=== PATIENT | male | born 1955 | race Caucasian/White ===

== ENCOUNTER 2024-04-26 09:28 | Emergency (ER) | payer MEDICARE, OTHER, SELFPAY ==
[2024-04-26 09:29] VITALS: BMI 47.2
[2024-04-26 09:36] VITALS: BP 161/68
--- NOTE | 2024-04-26 10:33 | ED.GENMED ---
History of Present Illness
General
Chief Complaint: Back Pain
Source: patient
Exam Limitations: none
Time Seen by Provider: 04/26/24 10:17
History of Present Illness
History of Present Illness:
69-year-old male diabetic presents with 3 weeks worth of intermittent left lower back pain. There is no associated leg pain. No bowel or bladder dysfunction. No paresthesias. He has been going to the chiropractor without relief. He tried
meloxicam which helps a little bit but the pain returns. Today the pain was so bad he was having trouble walking. No known injury. No other complaints at this time.
Phy Exam
Physical Exam
Physical Exam:
General: Well-appearing male no acute respiratory distress
HEENT: Normocephalic atraumatic
Heart: Regular rate and rhythm no murmurs
Lungs: Clear no wheeze
Abdomen is soft nontender nondistended musculoskeletal exam: Patient is tender over the left flank
And lumbosacral junction on the left side. Good passive range of motion of both legs
Skin is warm no rash
Course
Orders/Labs/Results
Orders:
Orders
04/26/24 10:28
Ketorolac [Toradol] 15 mg IV NOW STA
diazePAM [Valium Injection] 5 mg IV NOW STA
04/26/24 10:29
CT Abd/pel Without Iv Or Oral Urgent
Comment:
Reason For Exam: left flank pain
04/26/24 10:59
Complete Blood Count/With Diff Urgent
Comprehensive Metabolic Panel Urgent
04/26/24 11:00
Urinalysis Reflex To Culture Urgent
Date Specimen was Collected: 04/26/24
Time Specimen was Collected: 10:56
Urine Microscopic Reflex Cult Urgent
Abnormal Lab Results
04/26/24 04/26/24
10:59 11:00
Lymphocytes % 19.1 L %
(20.5-51.1)
BUN 24 H mg/dl
(9-20)
Glucose 109 H mg/dl
(70-99)
Urine Bacteria (Reflex) Few A
(Negative)
Urine Albumin (Reflex) 2+ A
(Neg - Trace)
04/26/24 10:59
04/26/24 10:59
Vital Signs
Initial and Last Documented VS:
Initial Vital Signs
Temp Pulse Resp BP Pulse Ox
98.2 F 80 18 161/68 99
04/26/24 09:36 04/26/24 09:36 04/26/24 09:36 04/26/24 09:36 04/26/24 09:36
Last Documented Vital Signs
Temp Pulse Resp BP Pulse Ox
98.2 F 80 18 158/76 98
04/26/24 09:36 04/26/24 09:36 04/26/24 09:36 04/26/24 14:00 04/26/24 14:15
MDM/Problems Addressed
Differential Diagnosis Includes:
Left flank and lower back pain. Consider musculoskeletal flank pain versus radiculopathy versus renal colic versus diverticulitis
No red flags to suggest cauda equina. No fevers to suggest infectious process
CT of abdomen pelvis without contrast is ordered. Will check urine labs treat symptoms with Toradol and Valium
*Critical Care Note
Total Time (30-74mins, 75-104mins- exclusive of procedures): Not Applicable
Update Note
Update Note:
Ct negative for acute findings. Patient feeling better after intervention here. Suspect muscular strain of lumbar spine. He is ambulatory to the bathroom at this time. Will send home prescription for prednisone and muscle relaxer.
ED Attending Note
-
Portions of this chart may have been created with voice recognition software.� Occasional wrong word or��sound alike� substitutions may have occurred due to the inherent limitations of voice recognition software.
Discharge Plan
Departure
Patient Disposition: Home (Routine Discharge)
Date of Disposition: 04/26/24
Time of Disposition: 15:09
Patient with high blood pressure during this ER visit?: No
Discharge Problem:
Lumbosacral strain
Instructions: Low Back Pain (DC)
Prescriptions:
New
diazepam [Valium] 5 mg tablet
5 mg PO BID PRN (Reason: muscle spasm) Qty: 10 0RF
prednisone 10 mg Tablet
See Rx Instructions .ROUTE .COMPLEX Qty: 30 0RF
Rx Instructions:
Take By Mouth:
40 mg daily x3 days, 30 mg daily x3 days,
20 mg daily x3 days, 10 mg daily x3 days.
Referrals:
Joao Tucker MD [Family Provider] -
Activity Restrictions/Additional Instructions:
Take medication as directed. Use warm compresses to the back. Return if worse otherwise follow-up with your doctor
Interventions
Interventions:
*Risk Screen - Suicide Last Done: 04/26/24 09:30
*General Assessment Last Done: 04/26/24 09:30
*Neglect/Abuse Screening Last Done: 04/26/24 09:30
*ED- Fall Risk Assessment Last Done: 04/26/24 09:30
*ED COVID-19 Vaccine History Last Done: 04/26/24 09:30
ED-Musculoskeletal Assessment Last Done: 04/26/24 11:08
Discharge Date and Time
Print Language: FRENCH
[2024-04-26] MEDS: TORADOL 15 MG IV (11:00)
[2024-04-26] MEDS: VALIUM INJECTION 5 MG IV (11:00)
[2024-04-26 11:07] VITALS: BP 146/90
[2024-04-26 11:30] LABS: % Basophils 0.8 % (0-2); % Eosinophils 1.5 % (0-6); % Immature Granulocytes 0.4 % (0-0.5); % Lymphocytes 19.1 % (20.5-51.1); % Monocytes 7.2 % (1.7-9.3); Absolute Basophils 0.1 10^3/uL (0-0.2); Absolute Eosinophils 0.1 10^3/uL (0-0.7); Absolute Lymphocytes 1.4 10^3/uL (1.2-3.4); Absolute Monocytes 0.5 10^3/uL (0.1-0.6); Absolute Neutrophils 5.4 10^3/uL (1.4-6.5); Hematocrit 40.2 % (39.0-52.0); Hemoglobin 13.3 g/dL (13.0-18.0); Mean Corp Hgb Conc. 33.1 g/dL (33.0-37.0); Mean Corpuscular Volume 84.6 fL (80.0-94.0); Mean Platelet Volume 9.4 fL (7.4-10.4); Nucleated Red Blood Cells % 0 % (-); Platelet Count 194 10^3/uL (130-400); Red Blood Cell Count 4.75 10^6/uL (4.70-6.10); White Blood Cell Count 7.6 10^3/uL (4.8-10.8)
[2024-04-26 11:36] LABS: ALT (SGPT) 30 U/L (0-50); AST (SGOT) 23 U/L (17-59); Alkaline Phosphatase 96 U/L (38-126); Blood Urea Nitrogen 24 mg/dl (9-20); Calcium 9.3 mg/dl (8.4-10.2); Carbon Dioxide 29 mmol/L (22-30); Chloride 105 mmol/L (98-107); Estimated Creatinine Clearance 75 ml/min; Glucose 109 mg/dl (70-99); Potassium 3.9 mmol/L (3.5-5.1); Sodium 143 mmol/L (135-145); Total Bilirubin 0.9 mg/dl (0.2-1.3); Total Protein 6.9 g/dl (6.3-8.2); eGFR 59.84
[2024-04-26 12:00] VITALS: BP 155/65
[2024-04-26 13:00] VITALS: BP 148/67
[2024-04-26 14:00] VITALS: BP 158/76
[2024-04-26 14:05] LABS: Urine Albumin 2+ (Neg - Trace); Urine Bilirubin Negative (Negative); Urine Character Clear (Clear); Urine Color Yellow; Urine Glucose Negative (Negative); Urine Ketone Negative (Negative); Urine Leukocyte Negative (Negative); Urine Nitrite Negative (Negative); Urine Occult Blood Negative (Negative); Urine Urobilinogen Negative (Neg - 1+)
[2024-04-26 14:55] LABS: Urine Squamous Cell 0-2 /LPF (Few)
[2024-04-26 14:56] LABS: Urine Bacteria Few (Negative); Urine Red Blood Cell 0-2 /HPF (0-2); Urine White Cell 0-2 /HPF (0-5)
== END 2024-04-26 15:27 | disposition home or self-care (01) ==
LOC: EMR 09:28
PROVIDERS: Physician Assistant; EMERGENCY PHYSICIAN Emergency Medicine; FAMILY PHYSICIAN Family Medicine
DX: S39.012A Strain of muscle, fascia and tendon of lower back, initial encounter (principal); X58.XXXA Exposure to other specified factors, initial encounter
CPT/HCPCS: 99284; 96374; 96375; 74176; 80053; 81003; 81015; 85025

== ENCOUNTER → 2024-04-30 07:12 | Outpatient (REF) | payer MEDICARE, OTHER, SELFPAY | LOC: PAVMRI 07:12 | PROVIDERS: ATTENDING PHYSICIAN Physical Medicine & Rehabilitation; FAMILY PHYSICIAN Family Medicine | DX: M54.16 Radiculopathy, lumbar region (principal) | CPT/HCPCS: 72148 ==